=== PATIENT | female | born 2000 | race African-American/Black ===

== ENCOUNTER 2023-11-18 17:41 | Emergency (ER) | payer OTHER ==
[2023-11-18 17:58] VITALS: BP 111/65; PULSE 88; RESP 18; TEMP 98.7; BMI 27.2
[2023-11-18 19:30] LABS: BASO % 0.5 % (0-2.0); EOS % 0.9 % (0-4.5); HEMATOCRIT 33.8 % (32.4-45.2); HEMOGLOBIN 10.9 GM/dL (10.7-15.3); LYMPH % 26.4 % (8-40); MCHC 32.1 g/dl (32.0-36.0); MEAN CELL VOLUME 77.7 fl (80-96); MONO % 5.4 % (3.8-10.2); NEUT % 66.8 % (42.8-82.8); PLATELET COUNT 324 10^3/uL (134-434); RBC 4.35 M/mm3 (3.60-5.2); RDW 13.1 % (11.6-15.6); WHITE BLOOD COUNT 5.6 K/mm3 (4.0-10.0)
[2023-11-18 20:19] LABS: CALCIUM 9.1 mg/dL (8.5-10.1)
[2023-11-18 20:23] LABS: CREATININE 0.7 mg/dL (0.55-1.3)
[2023-11-18 20:24] LABS: BILIRUBIN,TOTAL 0.4 mg/dL (0.2-1); TOT PROT 7.6 g/dl (6.4-8.2)
== END 2023-11-18 20:52 | disposition home or self-care (01) ==
LOC: JER 17:41
DX: R07.9 Chest pain, unspecified (principal); R00.2 Palpitations; H53.8 Other visual disturbances; R20.2 Paresthesia of skin; R45.1 Restlessness and agitation
CPT/HCPCS: 36415; 71046-TC-FY; 80053; 84484; 85025; 93005; 93010; 99285-25